=== PATIENT | male | born 1950 | race Caucasian/White ===

== ENCOUNTER 2018-06-12 15:43 | Outpatient (CLI) | payer MEDICARE | END 2018-06-12 15:44 | disposition home or self-care (01) | LOC: BICRAD 15:43 | PROVIDERS: ATTEND Internal Medicine Medical Oncology | DX: C90.00 Multiple myeloma not having achieved remission (principal); D47.2 Monoclonal gammopathy | CPT/HCPCS: 77075 ==

== ENCOUNTER 2019-04-01 09:45 | Outpatient (CLI) | payer MEDICARE ==
--- NOTE | 2019-04-01 14:39 | RAD ---
RIGHT SHOULDER THREE VIEWS: INDICATIONS: Right shoulder pain. IMPRESSION: No acute fracture or subluxation is evident. The visualized right lung is clear. 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 POS: CET
--- NOTE | 2019-04-01 14:39 | RAD ---
RIGHT HUMERUS TWO VIEWS: INDICATIONS: Right humerus pain. COMPARISON: None. IMPRESSION: No acute fracture or subluxation is evident. POS: CET
== END 2019-04-01 09:46 | disposition home or self-care (01) ==
LOC: BICRAD 09:45
PROVIDERS: ATTEND Family Medicine
DX: M25.511 Pain in right shoulder (principal); M79.601 Pain in right arm; M19.011 Primary osteoarthritis, right shoulder
CPT/HCPCS: 36415; 80053; 80061; 82043; 83036; 84153

== ENCOUNTER 2021-03-22 10:13 | Outpatient (CLI) | payer MEDICARE | END 2021-03-22 10:14 | disposition home or self-care (01) | LOC: BICRAD 10:13 | PROVIDERS: ATTEND Family Medicine | DX: R06.02 Shortness of breath (principal) | CPT/HCPCS: 36415; 71046; 80053; 80061; 82043; 82088; 82306; 82607; 82746; 83036; 83735; 83880; 84439; 84443; 85025 ==

== ENCOUNTER 2022-03-29 07:54 | Outpatient (CLI) | payer MEDICARE | END 2022-03-29 07:55 | disposition home or self-care (01) | LOC: ULT 07:54 | PROVIDERS: ATTEND Internal Medicine Nephrology | DX: I12.9 Hypertensive chronic kidney disease with stage 1 through stage 4 chronic kidney disease, or unspecified chronic kidney disease (principal); N18.2 Chronic kidney disease, stage 2 (mild) | CPT/HCPCS: 76770; 93975 ==

== ENCOUNTER 2022-04-22 11:31 | Outpatient (CLI) | payer MEDICARE ==
[~2022-04-22 11:31] MED LIST: Iopamidol-370 76% 500 ML 1 ML ONE
== END 2022-04-22 11:32 | disposition home or self-care (01) ==
LOC: BICCT 11:31
PROVIDERS: ATTEND Internal Medicine Nephrology
DX: N18.1 Chronic kidney disease, stage 1 (principal); N28.1 Cyst of kidney, acquired; K86.89 Other specified diseases of pancreas; R16.0 Hepatomegaly, not elsewhere classified
CPT/HCPCS: 74170; 82565; Q9967

== ENCOUNTER 2022-06-27 12:39 | Outpatient (CLI) | payer MEDICARE | END 2022-06-27 12:40 | disposition home or self-care (01) | LOC: BICCT 12:39 | PROVIDERS: ATTEND Internal Medicine Medical Oncology | DX: C90.00 Multiple myeloma not having achieved remission (principal) | CPT/HCPCS: 76497 ==

== ENCOUNTER 2024-06-09 13:13 | Outpatient (CLI) | payer MEDICARE | END 2024-06-09 13:14 | disposition home or self-care (01) | LOC: CT 13:13 | PROVIDERS: ATTEND Internal Medicine | DX: C90.00 Multiple myeloma not having achieved remission (principal); D84.9 Immunodeficiency, unspecified; D47.2 Monoclonal gammopathy; M89.9 Disorder of bone, unspecified | CPT/HCPCS: 76497 ==

== ENCOUNTER → 2025-08-15 | Day surgery (SDC) | payer MEDICARE ==
[~2025-08-15] MED LIST changes: -Iopamidol-370 76% 500 ML 1 ML ONE; +Lidocaine 1% w/Epinephrine 1:100K 20 ML VIAL ONE; +Sodium Bicarbonate 2.5 MEQ/5 ML SDV ONE
[2025-08-15 09:28] LABS: #Basophils 0.03 10x3/uL (0.0-0.2); #Eosinophils 0.09 10x3/uL (0.0-0.7); #Monocytes 0.39 10x3/uL (0.11-0.59); #Neutrophils 1.04 10x3/uL (1.40-6.50); %Basophils 0.9 % (0.0-1.0); %Eosinophils 2.6 % (0.0-10.0); %Lymphocytes 55.4 % (21.0-51.0); %Monocytes 11.1 % (0.0-10.0); %Neutrophils 29.7 % (42.0-75.0); Hematocrit 35.4 % (42.0-52.0); Hemoglobin 12.0 g/dL (14.0-18.0); Mean Corpuscular Hemoglobin 32.5 pg (27.0-31.0); Mean Corpuscular Volume 95.9 fL (78.0-98.0); Platelet Count 190 10x3/uL (130-400); Red Blood Cell (RBC) Count 3.69 mill/uL (4.70-6.10); White Blood Cell (WBC) Count 3.50 10x3/uL (4.8-10.8)
[2025-08-15 09:48] LABS: INR-International Normal Ratio 1.4; PTT 34.5 sec (22.9-36.1); Prothrombin Time 17.3 sec (12.0-14.7)
== END ==
LOC: CT 09:02
PROVIDERS: ATTEND Internal Medicine
PROC: 07DR3ZX Extraction of Iliac Bone Marrow, Percutaneous Approach, Diagnostic (ICD-10-PCS; principal; 2025-08-15)
DX: D75.89 Other specified diseases of blood and blood-forming organs (principal); D47.2 Monoclonal gammopathy; D64.9 Anemia, unspecified; I10 Essential (primary) hypertension; E11.9 Type 2 diabetes mellitus without complications; Z79.899 Other long term (current) drug therapy
CPT/HCPCS: 36000; 38222; 77002; 77012; 85025; 85097; 85610; 85730; J2250; 36415; 88184; 88185; 88189; 88237; 88264; 88280; 88305; 88311; 88341; 88342; 88365; 99152; 99153; J3010